=== PATIENT | male | born 1970 | race Caucasian/White ===

== ENCOUNTER 2017-10-06 07:24 | Observation (INO) | payer OTHER ==
[~2017-10-06] VITALS: Ht 182.9 cm; Wt 113.4 kg
--- NOTE | 2017-10-06 07:45 | ED GI/GU/ABDOMINAL COMPLAINT ---
History of Present Illness General Chief Complaint: Abdominal Pain/Flank Pain Stated Complaint: "I THINK I HAVE A KIDNEY STONE" Source: patient, family, old records Exam Limitations: no limitations Vital Signs & Intake/Output Vital Signs & Intake/Output Vital Signs Date Time Temp Pulse Resp B/P B/P Pulse O2 O2 Flow FiO2 Mean Ox Delivery Rate 10/06 1303 70 132/84 10/06 1007 70 15 132/84 100 Room Air Room Air 10/06 0726 98.3 74 18 178/111 98 Room Air Allergies Coded Allergies: No Known Allergies (10/06/17) Reconcile Medications Cholecalciferol (Vitamin D3) (Vitamin D) (Unknown Strength) TABLET (Unknown Dose) PO DAILY SUPPLEMENT (Reported) Dexlansoprazole (Dexilant) 60 MG KOKI.BP 1 CAP PO DAILY GI (Reported) Milk Thistle (Unknown Strength) CAPSULE (Unknown Dose) PO DAILY SUPPLEMENT ( Reported) Multiple Vitamin (Multivitamins) 1 EACH TABLET 1 TAB PO DAILY SUPPLEMENT ( Reported) [place]-3S/Dha/Epa/Fish Oil (Fish Oil 1,000 MG Softgel) (Unknown Strength) CAPSULE (Unknown Dose) PO DAILY SUPPLEMENT (Reported) Rosuvastatin Calcium (Crestor) 10 MG TABLET 1 TAB PO Saturday CHOLESTEROL (Reported) Triage Note: 47 YO MALE TO TRIAGE C/O R SIDED FLANK PAIN. STATES HX OF KIDNEY STONES. SEES DR WEIR. DENIES URINARY S/S. PT TO ER ROOM 4. IV EST. PT MEDICATED PER EMAR. Triage Nurses Notes Reviewed? yes Onset: Just prior to arrival Duration: hour(s):, constant, continues in ED Timing: recent history Quality/Severity: aching, sharpness, severe Location: right flank Radiation: RLQ Activities at Onset: sleep Prior Abdominal Problems: similar symptoms Past Sexual History: Unobtainable at this time No Modifying Factors: none Associated Symptoms: abdominal pain, nausea/vomiting HPI: 4 hours prior to admission patient awoke with sharp severe constant right sided flank pain into the right lower quadrant associated with nausea and diaphoresis similar to previous kidney stone 12 years ago. He denies fever chills chest pain cough shortness of breath headache dysuria rash bleeding. Past History Travel History Traveled to [place] past 21 day No Medical History Any Pertinent Medical History? 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 No Review of Systems Review of Systems Constitutional: Reports: no symptoms. EENTM: Reports: no symptoms. Respiratory: Reports: no symptoms. Cardiovascular: Reports: no symptoms. GI: Reports: see HPI, abdominal pain, nausea. Genitourinary: Reports: see HPI, pain. Musculoskeletal: Reports: no symptoms. Skin: Reports: no symptoms. Neurological/Psychological: Reports: no symptoms. Hematologic/Endocrine: Reports: no symptoms. Immunologic/Allergic: Reports: no symptoms. All Other Systems: Reviewed and Negative Physical Exam Physical Exam General Appearance: well developed/nourished, alert, awake, anxious, severe distress Head: atraumatic, normal appearance Eyes: Bilateral: normal appearance, PERRL, EOMI, normal inspection. Ears, Nose, Throat, Mouth: hearing grossly normal, moist mucous membrane Neck: normal inspection, supple, full range of motion, normal alignment Respiratory: normal breath sounds, chest non-tender, no respiratory distress, quiet respiration, lungs clear Cardiovascular: regular rate/rhythm, normal peripheral pulses, norml femoral pulses equa Peripheral Pulses: 4+ carotid (R), 4+ carotid (L) Gastrointestinal: normal bowel sounds, soft, non-tender, no organomegaly Male Genitals: normal genitalia Back: normal inspection, normal range of motion Extremities: normal range of motion, no ligament instability Neurologic/Psych: no motor/sensory deficits, awake, alert, oriented x 3, normal gait, normal mood/affect, 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 No Sepsis Present: No Sepsis Focused Exam Completed? No Progress Differential Diagnosis: biliary colic, pancreatitis, pyelonephritis, ureterolithiasis Plan of Care: Orders Procedure Date/time Status Regular Diet 10/06 L Active Pathway - chart 10/06 1352 Active House Staff 10/06 1352 Active Patient Data 10/06 1352 Active Code Status 10/06 1352 Active Pathway - chart 10/06 1350 Active Patient Data 10/06 1328 Active OXYGEN SETUP (GEN) 10/06 1250 Active Saline Lock 10/[address] in observation 10/06 1250 Active Vital Signs 10/06 125 Active Activity/Ambulation 10/06 1250 Active Code Status 10/06 1250 Complete URINALYSIS 10/06 0733 Complete LIPASE 10/06 0733 Complete COMPREHENSIVE METABOLIC PANEL 10/06 0733 Complete CBC WITHOUT DIFFERENTIAL 10/06 0733 Complete VTE Mechanical Prophylaxis 10/06 UNK Active Current Medications Sig/Janneth Start time Last Medication Dose Stop Time Status Admin Atorvastatin Calcium 20 MG 1700 10/06 170 UNVr (Lipitor) Heparin Sodium 5,000 UNIT Q8 10/06 1400 UNVr (Porcine) Morphine Sulfate 6 MG Q4P PRN 10/06 1400 UNVr (Morphine) Sodium Chloride 1,000 ML ONCE ONE 10/06 1400 UNVr (Normal Saline 0.9%) 10/06 1759 Sodium Chloride 1,000 ML BOLUS ONE 10/06 1300 AC 10/06 (Normal Saline 0.9%) 10/06 1359 1303 Laboratory Tests 10/06/17 1140: Urinalysis LIGHT H, Urine Color YEL, Urine Clarity HAZY H, Urine pH 6.0, Ur Specific [place] >= 1.030, Urine Protein TRACE H, Urine Ketones TRACE H, Urine Nitrite NEG, Urine Bilirubin NEG, Urine Urobilinogen 0.2, Ur Leukocyte Esterase NEG, Ur Microscopic SEDIMENT EXAMINED, Urine RBC 25-50 H, Urine WBC RARE, Ur Epithelial Cells RARE, Urine Bacteria RARE H, Hyaline Casts RARE H, Urine Mucus MOD H, Urine Hemoglobin LARGE H, Urine Glucose NEG 10/06/17 0740: Anion Gap 13, Estimated GFR 47 L, BUN/Creatinine Ratio 11.3, Glucose 115 H, Calcium 9.8, Total Bilirubin 1.0, AST 49, ALT 69, Alkaline Phosphatase 68, Total Protein 7.4, Albumin 4.5, Globulin 2.9, Albumin/Globulin Ratio 1.6, Lipase 79, CBC w Diff NO MAN DIFF REQ, RBC 5.76, MCV 89.6, MCH 30.0, MCHC 33.4, RDW 12.8, MPV 8.3, Gran % 71.9, Lymphocytes % 18.2 L, Monocytes % 7.1, Eosinophils % 2.4, Basophils % 0.4, Absolute Granulocytes 4.7, Absolute Lymphocytes 1.2, Absolute Monocytes 0.5, Absolute Eosinophils 0.2, Absolute Basophils 0 Diagnostic Imaging: Viewed by Me: Ultrasound. Discussed w/RAD: Ultrasound. Radiology Impression: Normal renal ultrasound. No stone seen.., Small bilateral renal stones. Mild right hydronephrosis from a 2 x 4 mm right proximal ureteral stone. Initial ED EKG: none Departure Departure Time of Disposition: 1200 Disposition: STILL A PATIENT Condition: Stable Clinical Impression Primary Impression: Renal colic on right side Referrals: Geovanna HAY,Victor Manuel Bob (PCP/Family) Departure Forms: Customer Survey General Discharge Information Observation Note Spoke With: John HAY,[facility] Physician Advisor Notified: JACLYN HAY,[facility] [facility] Patient In: Non-ED OBS Care Area Rationale for Observation: My rational for observation is as follows intractable pain requiring IV analgesia IV antiemetic IV fluid urology evaluation continuing care discharge planning..
[2017-10-06 08:01] LABS: ABSOLUTE BASOPHIL COUNT 0 /CUMM (0.0-0.2); ABSOLUTE EOSINOPHIL COUNT 0.2 /CUMM (0.0-0.7); ABSOLUTE GRANULOCYTE CT 4.7 /CUMM (1.4-6.5); ABSOLUTE LYMPH COUNT 1.2 /CUMM (1.2-3.4); ABSOLUTE MONOCYTE COUNT 0.5 /CUMM (0.10-0.60); BASOPHIL % 0.4 % (0.0-2.0); EOSINOPHIL % 2.4 % (0-5); GRANULOCYTE % 71.9 % (42.2-75.2); HEMATOCRIT 51.6 % (42-52); MEAN CORPUSCULAR HGB CONC 33.4 G/DL (33.0-37.0); MEAN CORPUSCULAR VOLUME 89.6 FL (80.0-94.0); MEAN PLATELET VOLUME 8.3 FL (7.4-10.4); PLATELET COUNT 230 /CUMM (130-400); RBC DISTRIBUTION WIDTH 12.8 % (11.5-14.5); RED BLOOD CELL CT 5.76 /CUMM (4.70-6.10); WHITE BLOOD CELL COUNT 6.5 /CUMM (4.8-10.8)
--- NOTE | 2017-10-06 09:00 | ULTRASOUND REPORT ---
EXAMINATION: US RETROPERITONEAL COMPLETE (RENAL) CLINICAL INFORMATION: Right flank pain. COMPARISON: Previous renal ultrasound and K[facility] July [address] July 2009 TECHNIQUE: Real-time imaging of the kidneys and bladder. FINDINGS: RIGHT KIDNEY: 11.8 x 6.2 x 6.3 cm (SAG x AP x TRV). The kidney is normal in size, contour, and echogenicity. Renal cortical thickness is normal. No calculi or focal parenchymal lesions. No hydronephrosis. LEFT KIDNEY: 11.7 x 7.2 x 4.8 cm (SAG x AP x TRV). The kidney is normal in size, contour, and echogenicity. Renal cortical thickness is normal. No calculi or focal parenchymal lesions. No hydronephrosis. BLADDER: Not optimally distended. A left ureteral jet is seen. A ureteral jet is not seen. Prevoid bladder volume is 112 mL. Postvoid bladder volume was not obtained. The prostate gland does not appear enlarged. The prostate gland measures 2.4 x 2.7 x 3.4 m. IMPRESSION: Normal renal ultrasound. No stone seen..
--- NOTE | 2017-10-06 10:22 | CT SCAN REPORT ---
EXAMINATION: CT ABDOMEN AND PELVIS WITHOUT CONTRAST CLINICAL INFORMATION: Right flank pain. COMPARISON: Previous renal ultrasound the same day. TECHNIQUE: Multidetector volumetric imaging was performed from the superior aspect of the liver through the pubic symphysis. Sagittal and coronal reformatted images were obtained on the technologist's workstation. DLP: 812 mGy-cm FINDINGS: LUNG BASES: The visualized lung bases are unremarkable. LIVER, GALLBLADDER, AND BILIARY TREE: The liver is normal in size, shape, and attenuation. No focal hepatic lesion or biliary ductal dilatation is present. The gallbladder is unremarkable with no evidence of radiopaque gallstones, gallbladder wall thickening, or obvious pericholecystic inflammatory changes. PANCREAS: Unremarkable. SPLEEN: Unremarkable. ADRENAL GLANDS: Unremarkable. KIDNEYS AND URETERS: There are four right renal stones. The largest stone measures 3 mm in the lower pole. There is mild right hydronephrosis from a 2 x 4 mm right proximal ureteral stone. There are 4 left renal stones, largest measuring 2 mm in the upper pole. No left hydronephrosis is seen. BLADDER: Unremarkable. GASTROINTESTINAL TRACT: The small and large bowel are unremarkable. The appendix is unremarkable. There may be a small hiatal hernia. ABDOMINAL WALL: There is a small umbilical hernia containing fat. There is fat in the left inguinal canal. LYMPH NODES: There are no enlarged lymph nodes. There is no ascites. VASCULAR: Unremarkable. PELVIC VISCERA: The prostate gland does not appear enlarged. OSSEOUS STRUCTURES: There is spondylolysis, spondylolisthesis and degenerative disc disease at L5-S1. IMPRESSION: Small bilateral renal stones. Mild right hydronephrosis from a 2 x 4 mm right proximal ureteral stone.
[2017-10-06] MEDS ORDERED: DEXILANT60 M1 PO (12:15)
[2017-10-06] MEDS ORDERED: VITAMIN D1000 UNIT PO (12:15)
[2017-10-06] MEDS ORDERED: CRESTOR10 M1 PO (12:15)
[2017-10-06] MEDS ORDERED: MILK THISTLE150 M1 PO (12:16)
[2017-10-06] MEDS ORDERED: MULTIVITAMINS1 EAC9 PO (12:16)
[2017-10-06] MEDS ORDERED: FISH OIL 1,0001 EAC5 PO (12:16)
--- NOTE | 2017-10-06 14:07 | History & Physical ---
AndreaSamirarhonda 10/06/17 1355: General Information and HPI MD Statement: I have seen and personally examined EDI WISE and documented this H&P. The patient is a 47 year old M who presented with a patient stated chief complaint of abdominal pain []. Source of Information: patient Exam Limitations: no limitations History of Present Illness: Patient is a 47-year-old male with significant history of renal stones, twice ESWL presented to the ED today with a chief complaint of right abdominal pain that started this morning. Patient states that at around 3 AM this morning he woke up with significant pain around the right lumbar region radiating to the right groin. Pain was 10 on 10 in severity, colicy in nature, around the right lumbar region. There was no associated fever, chills, nausea, vomiting, urinary or bowel symptoms. Patient had multiple episodes of renal stones in the past and therefore felt this was similar to his previous episodes. On arrival to the ED his temperature was 98.3, pulse 74, respiration 18, blood pressure 178/111, saturating 98% on room air. Labs were significant for a creatinine of 1.6(baseline 1.1) UA was hazy with hemoglobin and 25-50 RBCs Renal ultrasound was normal. CT abdomen and pelvis showed small bilateral renal stones, mild right hydronephrosis from a 2 x 4 mm right proximal ureteral stone. Patient received IV fluids, Toradol and morphine in the ED with improvement in his pain Allergies/Medications Allergies: Coded Allergies: No Known Allergies (10/06/17) Home Med list Cholecalciferol (Vitamin D3) (Vitamin D) (Unknown Strength) TABLET (Unknown Dose) PO DAILY SUPPLEMENT (Reported) Dexlansoprazole (Dexilant) 60 MG CAP.BP 1 CAP PO DAILY GI (Reported) Milk Thistle (Unknown Strength) CAPSULE (Unknown Dose) PO DAILY SUPPLEMENT ( Reported) Multiple Vitamin (Multivitamins) 1 EACH TABLET 1 TAB PO DAILY SUPPLEMENT ( Reported) [place]-3S/Dha/Epa/Fish Oil (Fish Oil 1,000 MG Softgel) (Unknown Strength) CAPSULE (Unknown Dose) PO DAILY SUPPLEMENT (Reported) Rosuvastatin Calcium (Crestor) 10 MG TABLET 1 TAB PO Saturday CHOLESTEROL (Reported) Past History Travel History Traveled to [place] past 21 day No Medical History Neurological: NONE EENT: NONE Cardiovascular: NONE Respiratory: NONE Gastrointestinal: NONE Hepatic: NONE Renal: KIDNEY STONES Musculoskeletal: NONE Psychiatric: NONE Endocrine: NONE Blood Disorders: NONE Cancer(s): 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 EENTM: Reports: no symptoms. Cardiovascular: Reports: no symptoms. Respiratory: Reports: no symptoms. GI: Reports: abdominal pain. Genitourinary: Reports: no symptoms. Musculoskeletal: Reports: no symptoms. Exam & Diagnostic Data Last 24 Hrs of Vital Signs/I&O Vital Signs Date Time Temp Pulse Resp B/P B/P Pulse O2 O2 Flow FiO2 Mean Ox Delivery Rate 10/06 1303 70 132/84 10/06 1007 70 15 132/84 100 Room Air Room Air 10/06 0726 98.3 74 18 178/111 98 Room Air Intake & Output 10/06 1600 10/06 0800 10/06 0000 Intake Total 2000 0 Output Total 60 Balance 1940 0 Intake, IV 2000 Intake, Oral 0 Output, Urine 60 Patient 113.398 kg Weight Weight Reported by Patient Measurement Method Physical Exam General Appearance Alert, Oriented X3, Cooperative, Mild Distress Skin No Rashes Skin Temp/Moisture Exam: Warm/Dry Sepsis Skin Exam (color): Normal for Ethnicity HEENT Atraumatic, PERRLA, EOMI Neck Supple, No JVD Lymphatic Cervical nl Cardiovascular Regular Rate, Normal S1, Normal S2, No Murmurs Lungs Clear to Auscultation, Normal Air Movement Abdomen TENDERNESS IN RIGHT LUMBAR REGION. No cva tenderness Neurological Normal Gait Extremities No Clubbing, No Cyanosis, No Edema Last 24 Hrs of Labs/Cristi: Laboratory Tests 10/06/17 1140: Urinalysis LIGHT H, Urine Color YEL, Urine Clarity HAZY H, Urine pH 6.0, Ur Specific [place] >= 1.030, Urine Protein TRACE H, Urine Ketones TRACE H, Urine Nitrite NEG, Urine Bilirubin NEG, Urine Urobilinogen 0.2, Ur Leukocyte Esterase NEG, Ur Microscopic SEDIMENT EXAMINED, Urine RBC 25-50 H, Urine WBC RARE, Ur Epithelial Cells RARE, Urine Bacteria RARE H, Hyaline Casts RARE H, Urine Mucus MOD H, Urine Hemoglobin LARGE H, Urine Glucose NEG 10/06/17 0740: Anion Gap 13, Estimated GFR 47 L, BUN/Creatinine Ratio 11.3, Glucose 115 H, Calcium 9.8, Total Bilirubin 1.0, AST 49, ALT 69, Alkaline Phosphatase 68, Total Protein 7.4, Albumin 4.5, Globulin 2.9, Albumin/Globulin Ratio 1.6, Lipase 79, CBC w Diff NO MAN DIFF REQ, RBC 5.76, MCV 89.6, MCH 30.0, MCHC 33.4, RDW 12.8, MPV 8.3, Gran % 71.9, Lymphocytes % 18.2 L, Monocytes % 7.1, Eosinophils % 2.4, Basophils % 0.4, Absolute Granulocytes 4.7, Absolute Lymphocytes 1.2, Absolute Monocytes 0.5, Absolute Eosinophils 0.2, Absolute Basophils 0 Assessment/Plan Assessment: Patient is a 47-year-old male with significant history of renal stones, twice ESWL presented to the ED today with a chief complaint of right abdominal pain that started this morning. On arrival to the ED his temperature was 98.3, pulse 74, respiration 18, blood pressure 178/111, saturating 98% on room air. Labs were significant for a creatinine of 1.6(baseline 1.1) UA was hazy with hemoglobin and 25-50 RBCs Renal ultrasound was normal. CT abdomen and pelvis showed small bilateral renal stones, mild right hydronephrosis from a 2 x 4 mm right proximal ureteral stone. Patient received IV fluids, Toradol and morphine in the ED with improvement in his pain Assessment * Renal colic secondary to proximal ureteral stone * Mild right hydronephrosis * Acute kidney injury Plan * Admit to [facility] * Vitals per protocol * IV hydration with normal saline at 150 cc an hour * Continue flomax daily * urine and blood cultures * Continue IV morphine 6 mg every 4 hours for pain control(no Toradol given significant kidney injury) check BEP in a.m. * We will watch off antibiotics since no signs of infection. Culture negative in the past * Urology consult with Dr. Sandy * We will keep patient nothing by mouth if plan to do ESWL tomorrow * DVT prophylaxis subcutaneous heparin * Full code * Severe pain pathway As Ranked By This Provider Problem List: 1. Renal colic on right side Core Measures/Misc (03/31) Acute Coronary Syndrome ACS Diagnosis: No Congestive Heart Failure Congestive Heart Failure Diagnosis No Cerebrovascular Accident CVA/TIA Diagnosis: No VTE (View Protocol) VTE Risk Factors Age>40 No Mechanical VTE Prophylaxis d/t N/A MechProphylax Ordered No VTE Pharm Prophylaxis d/t NA PharmProphylax ordered Sepsis (View protocol) Sepsis Present: No John HAY,Allison 10/06/17 1645: Attending Review Statement Attending Statement Attending MD Statement: examined this patient, discuss w/resident/PA/CAN DRYER, agreed w/resident/PA/CAN DRYER, reviewed EMR data (avail), reviewed images Attending Assessment/Plan: Patient seen and examined. Plan of care discussed with the medical team and the patient. Available lab work and radiology test reports were reviewed. Patient is a 47-year-old male with significant history of renal stones, twice ESWL presented to the ED today with a chief complaint of right flank and abdominal pain that started this morning. Patient was given Toradol in ED. Patient still not comfortable with his pain. He is currently afebrile. Although his initial blood pressure was elevated later on blood pressure normalized. CT scan shows a 2 x 4 mm right proximal ureteric stone with the mild right hydronephrosis. Plan is to admit patient to please observation on medical floor for pain control and IV fluids. We'll obtain consultation with Dr. Sandy. Patient does not like getting morphine therefore plan is to give Toradol for a short duration of 24-48 hours. Please recheck creatinine tomorrow given his elevated. Pain is not controlled Toradol patient can be given Dilaudid. Renal suspicion for UTI therefore no need for antibiotics.
[2017-10-06 16:14] VITALS: BP 130/95
--- NOTE | 2017-10-06 16:52 | Cons- Urology ---
General Information and HPI Consulting Request Date of Consult: 10/06/17 Requested By: John HAY,Allison Reason for Consult: SEVERE RIGHT RENAL COLIC;HYDRONEPHROSIS;KIDNEY-URETER STONES Source of Information: patient, old records Exam Limitations: no limitations History of Present Illness: 47 YR OLD WITH KNOWN HX STONES: NO SYMPTOMS FOR 4 YEARS. NOW PRESENTS WITH SUDDEN ONSET RIGHT COLI: CT REVIEWED WITH PT. Allergies/Medications Allergies: Coded Allergies: No Known Allergies (10/06/17) Home Med List: Cholecalciferol (Vitamin D3) (Vitamin D) (Unknown Strength) TABLET (Unknown Dose) PO DAILY SUPPLEMENT (Reported) Dexlansoprazole (Dexilant) 60 MG CAP.BP 1 CAP PO DAILY GI (Reported) Milk Thistle (Unknown Strength) CAPSULE (Unknown Dose) PO DAILY SUPPLEMENT ( Reported) Multiple Vitamin (Multivitamins) 1 EACH TABLET 1 TAB PO DAILY SUPPLEMENT ( Reported) [place]-3S/Dha/Epa/Fish Oil (Fish Oil 1,000 MG Softgel) (Unknown Strength) CAPSULE (Unknown Dose) PO DAILY SUPPLEMENT (Reported) Rosuvastatin Calcium (Crestor) 10 MG TABLET 1 TAB PO Saturday CHOLESTEROL (Reported) Current Medications: Current Medications Sig/Janneth Start time Last Medication Dose Route Stop Time Status Admin Acetaminophen 1,000 MG ONCE ONE 10/06 0930 DC 10/06 IV 10/06 0931 0922 Acetaminophen 0 .STK-MED ONE 10/06 0922 DC IV Atorvastatin Calcium 20 MG 1700 10/06 1700 AC PO Famotidine 20 MG ONCE ONE 10/06 1200 DC 10/06 IV 10/06 1201 1159 Famotidine 0 .STK-MED ONE 10/06 1153 DC IV Heparin Sodium 5,000 UNIT Q8 10/06 1400 AC (Porcine) SC Ketorolac 30 MG ONCE ONE 10/06 1200 DC 10/06 Tromethamine IV 10/06 1201 1159 Ketorolac 0 .STK-MED ONE 10/06 1153 DC Tromethamine .ROUTE Ketorolac 30 MG ONCE ONE 10/06 0745 DC 10/06 Tromethamine IV 10/06 0746 0740 Ketorolac 0 .STK-MED ONE 10/06 0738 DC Tromethamine .ROUTE Morphine Sulfate 6 MG Q4P PRN 10/06 1400 AC 10/06 IV 1647 Morphine Sulfate 0 .STK-MED ONE 10/06 1018 DC .ROUTE Morphine Sulfate 4 MG ONCE ONE 10/06 1015 DC 10/06 IV 10/06 1016 1018 Morphine Sulfate 4 MG ONCE ONE 10/06 0745 DC 10/06 IV 10/06 0746 0740 Morphine Sulfate 0 .STK-MED ONE 10/06 0740 DC .ROUTE Ondansetron HCl 4 MG ONCE ONE 10/06 0745 DC 10/06 IV 10/06 0746 0740 Ondansetron HCl 0 .STK-MED ONE 10/06 0739 DC .ROUTE Sodium Chloride 1,000 ML Q6H 10/06 1530 AC 10/06 IV 1520 Sodium Chloride 1,000 ML ONCE ONE 10/06 1400 AC 10/06 IV 10/06 1759 1437 Sodium Chloride 1,000 ML BOLUS ONE 10/06 1300 DC 10/06 IV 10/06 1359 1303 Sodium Chloride 1,000 ML BOLUS ONE 10/06 1200 DC 10/06 IV 10/06 1259 1159 Sodium Chloride 1,000 ML BOLUS ONE 10/06 1045 DC 10/06 IV 10/06 1144 1039 Sodium Chloride 1,000 ML BOLUS ONE 10/06 0745 DC 10/06 IV 10/06 0844 0740 Tamsulosin HCl 0.4 MG DAILY 10/07 1000 AC PO Tamsulosin HCl 0.4 MG ONCE ONE 10/06 1300 DC 10/06 PO 10/06 1301 1303 Past History Medical History Blood Transfusion Hx: No Neurological: PINCH NERVE L5-S1 EENT: NONE Cardiovascular: NONE Respiratory: NONE Gastrointestinal: NONE Hepatic: NONE Renal: KIDNEY STONES Musculoskeletal: NONE Psychiatric: NONE Endocrine: NONE Blood Disorders: NONE Cancer(s): MELANOMA 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 Ambulation: independent IADLs Independent: shopping, housework, finances, food prep, telephone, transportation , medication admin. Employment History Employment: Employed Profession/Employer: [employer] Retired? no Review of Systems Review of Systems Constitutional: Reports: chills. EENTM: Denies: no symptoms. Cardiovascular: Denies: no symptoms. Respiratory: Denies: no symptoms. GI: Denies: no symptoms. Genitourinary: Denies: no symptoms. Musculoskeletal: Denies: no symptoms. Skin: Denies: no symptoms. Exam & Diagnostic Data Vital Signs and I&O Vital Signs Date Time Temp Pulse Resp B/P B/P Pulse O2 O2 Flow FiO2 Mean Ox Delivery Rate 10/06 1550 97.0 70 18 136/64 98 Room Air 10/06 1421 96.4 63 16 157/91 99 10/06 1303 70 132/84 10/06 1007 70 15 132/84 100 Room Air Room Air 10/06 0726 98.3 74 18 178/111 98 Room Air Intake & Output 10/06 1600 10/06 0800 10/06 0000 10/05 1600 10/05 0800 10/05 0000 Intake Total 2000 0 Output Total 60 Balance 1940 0 Intake, IV 2000 Intake, Oral 0 Output, Urine 60 Patient 250 lb Weight Weight Reported by Patient Measurement Method Physical Exam General Appearance: well developed/nourished, mild distress Head: atraumatic Eyes: Bilateral: normal appearance. Respiratory: normal breath sounds Cardiovascular: regular rate/rhythm Gastrointestinal: normal bowel sounds, soft, non-tender Back: CVA tenderness (R) Extremities: normal inspection Skin: intact, normal color, warm/dry Reproductive: Normal male genitalia Last 24 Hours of Labs: Laboratory Tests 10/06 10/06 1140 0740 Chemistry Sodium (137 - 145 mmol/L) 146 H Potassium (3.5 - 5.1 mmol/L) 4.5 Chloride (98 - 107 mmol/L) 102 Carbon Dioxide (22 - 30 mmol/L) 31 H Anion Gap (5 - 16) 13 BUN (9 - 20 mg/dL) 18 Creatinine (0.7 - 1.2 mg/dL) 1.6 H Estimated GFR (>60 ml/min) 47 L BUN/Creatinine Ratio (7 - 25 %) 11.3 Glucose (65 - 99 mg/dL) 115 H Calcium (8.4 - 10.2 mg/dL) 9.8 Total Bilirubin (0.2 - 1.3 mg/dL) 1.0 AST (17 - 59 U/L) 49 ALT (21 - 72 U/L) 69 Alkaline Phosphatase (< 127 U/L) 68 Total Protein (6.3 - 8.2 g/dL) 7.4 Albumin (3.5 - 5.0 g/dL) 4.5 Globulin (1.9 - 4.2 gm/dL) 2.9 Albumin/Globulin Ratio (1.1 - 2.2 %) 1.6 Lipase (23 - 300 U/L) 79 Hematology CBC w Diff NO MAN DIFF REQ WBC (4.8 - 10.8 /CUMM) 6.5 RBC (4.70 - 6.10 /CUMM) 5.76 Hgb (14.0 - 18.0 G/DL) 17.3 Hct (42 - 52 %) 51.6 MCV (80.0 - 94.0 FL) 89.6 MCH (27.0 - 31.0 PG) 30.0 MCHC (33.0 - 37.0 G/DL) 33.4 RDW (11.5 - 14.5 %) 12.8 Plt Count (130 - 400 /CUMM) 230 MPV (7.4 - 10.4 FL) 8.3 Gran % (42.2 - 75.2 %) 71.9 Lymphocytes % (20.5 - 51.1 %) 18.2 L Monocytes % (1.7 - 9.3 %) 7.1 Eosinophils % (0 - 5 %) 2.4 Basophils % (0.0 - 2.0 %) 0.4 Absolute Granulocytes (1.4 - 6.5 /CUMM) 4.7 Absolute Lymphocytes (1.2 - 3.4 /CUMM) 1.2 Absolute Monocytes (0.10 - 0.60 /CUMM) 0.5 Absolute Eosinophils (0.0 - 0.7 /CUMM) 0.2 Absolute Basophils (0.0 - 0.2 /CUMM) 0 Urines Urinalysis LIGHT H Urine Color (YEL,AMB,STR) YEL Urine Clarity (CLEAR) HAZY H Urine pH (5.0 - 8.0) 6.0 Ur Specific [place] (1.001 - 1.035) >= 1.030 Urine Protein (NEG,<30 MG/DL) TRACE H Urine Ketones (NEG) TRACE H Urine Nitrite (NEG) NEG Urine Bilirubin (NEG) NEG Urine Urobilinogen (0.1 - 1.0 EU/dl) 0.2 Ur Leukocyte Esterase (NEG) NEG Ur Microscopic SEDIMENT EXAMINED Urine RBC (0 - 5 /HPF) 25-50 H Urine WBC (0 - 2 /HPF) RARE Ur Epithelial Cells (NONE,FEW) RARE Urine Bacteria (NEG/NONE) RARE H Hyaline Casts (0/LPF) RARE H Urine Mucus (FEW,NONE) MOD H Urine Hemoglobin (NEG) LARGE H Urine Glucose (N MG/DL) NEG Imaging Results: PATIENT: EDI WISE PRESENT AGE: 47 PATIENT ACCOUNT NO: [id number] : 70 LOCATION: [facility] ORDERING PHYSICIAN: Travis Bhagat MD SERVICE DATE: 10/06/17 EXAM TYPE: CAT - CT ABD & PELVIS W/O IV CONTRAS EXAMINATION: CT ABDOMEN AND PELVIS WITHOUT CONTRAST CLINICAL INFORMATION: Right flank pain. COMPARISON: Previous renal ultrasound the same day. TECHNIQUE: Multidetector volumetric imaging was performed from the superior aspect of the liver through the pubic symphysis. Sagittal and coronal reformatted images were obtained on the technologist's workstation. DLP: 812 mGy-cm FINDINGS: LUNG BASES: The visualized lung bases are unremarkable. LIVER, GALLBLADDER, AND BILIARY TREE: The liver is normal in size, shape, and attenuation. No focal hepatic lesion or biliary ductal dilatation is present. The gallbladder is unremarkable with no evidence of radiopaque gallstones, gallbladder wall thickening, or obvious pericholecystic inflammatory changes. PANCREAS: Unremarkable. SPLEEN: Unremarkable. ADRENAL GLANDS: Unremarkable. KIDNEYS AND URETERS: There are four right renal stones. The largest stone measures 3 mm in the lower pole. There is mild right hydronephrosis from a 2 x 4 mm right proximal ureteral stone. There are 4 left renal stones, largest measuring 2 mm in the upper pole. No left hydronephrosis is seen. BLADDER: Unremarkable. GASTROINTESTINAL TRACT: The small and large bowel are unremarkable. The appendix is unremarkable. There may be a small hiatal hernia. ABDOMINAL WALL: There is a small umbilical hernia containing fat. There is fat in the left inguinal canal. LYMPH NODES: There are no enlarged lymph nodes. There is no ascites. VASCULAR: Unremarkable. PELVIC VISCERA: The prostate gland does not appear enlarged. OSSEOUS STRUCTURES: There is spondylolysis, spondylolisthesis and degenerative disc disease at L5-S1. IMPRESSION: Small bilateral renal stones. Mild right hydronephrosis from a 2 x 4 mm right proximal ureteral stone. Assessment/Plan Assessment/Plan RIGHT URETER STONE 4MM: WILL LIKELY PASS ON OWN: ADMITTED FOR PAIN MANAGEMENT-IF NO IMPROVEMENT OVERNIGHT WILL TAKE TO OR TOMORROW. OTHERWISE, IF IMPROVED IN AM CAN DC HOME TO RETURN ON SATURDAY FOR RIGHT ESWL. Copies To: Du HAY,Shine Consult Acknowledgment - Thank you for your consult request. Attending MD Review Statement Attending Statement Attending MD Statement: examined this patient, discuss w/resident/PA/CHANNEL MAN Attending Assessment/Plan: RIGHT URETER STONE 4MM: WILL LIKELY PASS ON OWN: ADMITTED FOR PAIN MANAGEMENT-IF NO IMPROVEMENT OVERNIGHT WILL TAKE TO OR TOMORROW. OTHERWISE, IF IMPROVED IN AM CAN DC HOME TO RETURN ON SATURDAY FOR RIGHT ESWL.
[2017-10-06 22:20] VITALS: BP 120/78
[2017-10-07 05:45] VITALS: BP 138/86
--- NOTE | 2017-10-07 11:16 | PN-Observation ---
Kwabena HAY,Aretha 10/07/17 1115: Observation Note Observation Note _ I have personally examined EDI WISE. him disposition is uncertain at this time. Before a determination can be made, he requires continued observation for the following reasons [renal stone with pain]. Assessment/Plan Medical Assessment: Patient is a 47-year-old male with significant history of renal stones, twice ESWL presented to the ED today with a chief complaint of right abdominal pain that started this morning. Assessment and plan Right proximal ureteral stone Acute kidney injury Right hydronephrosis * Patient treated with IV fluids and pain medication. He is on morphine 6 mg every 4. * Discussed with urologist wanted to do ureteroscope E/cystoscopy with laser lithotripsy and possible stent. * Patient can be discharged tomorrow to home with follow-up with Dr. Sandy within 1-2 weeks. * Acute kidney injury secondary due to right hydronephrosis and decreased by mouth intake. Patient is being treated with IV fluids at 150 mL per hour. Monitor BP tomorrow. * Patient is nothing by mouth for the procedure. * Code-full code * DVT prophylaxis-heparin Problem List: 1. Renal colic on right side 2. Hydronephrosis DVT/Prophylaxis: mechanical, pharmacological Subjective Follow-up For: Right renal stone Complaints: complains of pain and right loin 10 x 10 Review of Systems Constitutional: Reports: see HPI. Cardiovascular: Reports: no symptoms. Respiratory: Reports: no symptoms. Gastrointestinal: Reports: no symptoms. Genitourinary: Reports: no symptoms. Musculoskeletal: Reports: no symptoms. Objective Last 24 Hrs of Vital Signs/I&O Vital Signs Date Time Temp Pulse Resp B/P B/P Pulse O2 O2 Flow FiO2 Mean Ox Delivery Rate 10/07 1002 138/86 10/07 0545 98.7 79 22 138/86 97 Room Air 10/06 2220 97.5 78 18 120/78 96 Room Air 10/06 1614 97.8 66 16 130/95 97 Room Air 10/06 1550 97.0 70 18 136/64 98 Room Air 10/06 1421 96.4 63 16 157/91 99 Intake & Output 10/07 1600 10/07 0800 10/07 0000 Intake Total 1200 Output Total 775 500 Balance 425 -500 Intake, IV 1200 Output, Urine 775 500 Patient 250 lb Weight Physical Exam General Appearance: Alert, Oriented X3, Cooperative, No Acute Distress Cardiovascular: Regular Rate, Normal S1, Normal S2, No Murmurs Lungs: Clear to Auscultation, Normal Air Movement Abdomen: Soft, No Tenderness, No Hepatospenomegaly Neurological: Normal Speech, Strength at 5/5 X4 Ext, Normal Tone, Sensation Intact Extremities: No Edema Current Medications: Current Medications Sig/Janneth Start time Last Medication Dose Route Stop Time Status Admin Acetaminophen 1,000 MG Q6P PRN 10/07 0945 AC N/A 1 UNIT IV Acetaminophen 1,000 MG ONCE ONE 10/06 2115 DC 10/06 N/A 1 UNIT IV 10/069 2156 Atorvastatin Calcium 20 MG 1700 10/06 1700 AC PO Heparin Sodium 5,000 UNIT Q8 10/06 1400 AC (Porcine) SC Hydromorphone HCl 2 MG Q4P PRN 10/07 0945 AC PO Hydromorphone HCl 2 MG ONCE ONE 10/06 2245 DC PO 10/06 2246 Ketorolac 30 MG Q6-PRN PRN 10/07 0815 DC Tromethamine IV 10/12 0814 Ketorolac 30 MG ONCE ONE 10/07 0745 DC 10/07 Tromethamine IV 10/07 0746 0737 Morphine Sulfate 8 MG Q2 HRS NEEDED PRN 10/06 1830 DC 10/06 IV 1835 Morphine Sulfate 6 MG Q4P PRN 10/06 1400 DC 10/06 IV 1647 Ondansetron HCl 4 MG Q6P PRN 10/06 1830 AC 10/07 IV 0507 Sodium Chloride 1,000 ML Q6H 10/06 1530 AC 10/07 IV 1002 Sodium Chloride 1,000 ML ONCE ONE 10/06 1400 DC 10/06 IV 10/06 1759 1437 Sodium Chloride 1,000 ML BOLUS ONE 10/06 1300 DC 10/06 IV 10/06 1359 1303 Tamsulosin HCl 0.4 MG DAILY 10/07 1000 AC 10/07 PO 1002 Last 24 Hrs of Labs/Mics: Laboratory Tests 10/07/17 0709: Anion Gap 12, Estimated GFR 38 L, BUN/Creatinine Ratio 8.9 Microbiology 10/06 1408 BLOOD: Blood Culture - CAN Cancelled: NO BLOOD COLLECTED FOR MICRO DEPT/. IF NEEDED MUST BE 10/06 1408 BLOOD: Blood Culture - CAN Cancelled: NO BLOOD COLLECTED FOR MICRO DEPT/. IF NEEDED MUST BE Aminata Huynh 10/07/17 1251: Attending Addendum Attending Brief Note Patient with multiple renal stones and now found to have ASHLY. Patient on hydration, monitor creatinine. Urology conuslted, follow recs. Plan for OR as per urology.
--- NOTE | 2017-10-07 15:45 | Event Note ---
See Addendum Event Note Event Note: Patient's creatinine is worsened to 1.9 mg/dl today despite IV fluid hydration. Patient will likely need evaluation for his acute kidney injury in the setting of known bilateral renal stones with right ureteral stone and right hydronephosis. Case discussed with attending and pillowcase folder. Patient will need to be admitted for further evaluation of his kidney function and to monitor his serum creatinine. He may need ureteral stent insertion for his right ureteral/kidney stone with hydronephrosis and his renal function will have to be closely watched for improvement to prevent further deterioration of his renal function.
[2017-10-07 18:30] VITALS: BP 140/84
[2017-10-08 01:49] VITALS: BP 111/59
--- NOTE | 2017-10-08 07:15 | PN- Housestaff ---
Subjective Follow-up For: Right renal colic Complaints: no complaints Subjective: Patient seen and examined at bedside. Patient complains of mild vague right loin pain on and off. He denies nausea, vomiting, abdominal pain. He is eager to go home today. Review of Systems Constitutional: Reports: see HPI. Objective Last 24 Hrs of Vital Signs/I&O Vital Signs Date Time Temp Pulse Resp B/P B/P Pulse O2 O2 Flow FiO2 Mean Ox Delivery Rate 10/08 0724 97.9 79 18 128/86 98 10/08 0149 98.3 85 18 111/59 95 10/07 1830 96.3 72 18 140/84 96 Room Air 10/07 1002 138/86 Intake & Output 10/08 1600 10/08 0800 10/08 0000 Intake Total 0 400 Output Total 500 300 Balance -500 100 Intake, IV 0 Intake, Oral 400 Number 0 Bowel Movements Output, Urine 500 300 Physical Exam General Appearance: Alert, Oriented X3, Cooperative, No Acute Distress Cardiovascular: Normal S1, Normal S2, No Murmurs Lungs: Clear to Auscultation Abdomen: Soft, No Tenderness, No Hepatospenomegaly Neurological: Strength at 5/5 X4 Ext, Normal Tone, Sensation Intact Extremities: No Cyanosis, No Edema, Normal Pulses Current Medications: Current Medications Sig/Janneth Start time Last Medication Dose Route Stop Time Status Admin Acetaminophen 1,000 MG Q6P PRN 10/07 0945 AC N/A 1 UNIT IV Atorvastatin Calcium 20 MG 1700 10/06 1700 AC PO Fentanyl Citrate 250 MCG .STK-MED ONE 10/07 1357 DC IM 10/07 1358 Heparin Sodium 5,000 UNIT Q8 10/06 1400 AC (Porcine) SC Hydromorphone HCl 2 MG Q4P PRN 10/07 0945 AC PO Ketorolac 30 MG Q6-PRN PRN 10/07 0815 DC Tromethamine IV 10/12 0814 Meperidine HCl 50 MG .STK-MED ONE 10/07 1654 DC IM 10/07 1655 Meperidine HCl 50 MG .STK-MED ONE 10/07 1635 DC IM 10/07 1636 Midazolam HCl 2 MG .STK-MED ONE 10/07 1357 DC IM 10/07 1358 Morphine Sulfate 4 MG .STK-MED ONE 10/07 1654 DC IM 10/07 1655 Morphine Sulfate 4 MG .STK-MED ONE 10/07 1636 DC IM 10/07 1637 Morphine Sulfate 4 MG .STK-MED ONE 10/07 1357 DC IM 10/07 1358 Ondansetron HCl 4 MG Q6P PRN 10/06 1830 AC 10/07 IV 0507 Scopolamine HBr 0 .STK-MED ONE 10/07 1403 DC TOP Scopolamine HBr 1 PAT .STK-MED ONE 10/07 1356 DC TOP 10/07 1357 Sodium Chloride 1,000 ML Q6H 10/06 1530 DC 10/07 IV 1002 Tamsulosin HCl 0.4 MG DAILY 10/07 1000 AC 10/07 PO 1002 Last 24 Hrs of Lab/Cristi Results Last 24 Hrs of Labs/Mics: Laboratory Tests 10/08/17 0655: Anion Gap 13, Estimated GFR 43 L, BUN/Creatinine Ratio 10.6 Microbiology 10/07 1454 URINE ROUT: Urine Culture - RES Assessment/Plan Assessment: Patient is a 47-year-old male with significant history of renal stones, twice ESWL presented to the ED today with a chief complaint of right abdominal pain that started this morning. Assessment and plan 1. Right proximal ureteral stone 2. Acute kidney injury 3. Right hydronephrosis * Patient treated with IV fluids and pain medication. He is on morphine 6 mg every 4. * Patient had right renal stent placement yesterday. I discussed with Dr. Sandy today morning who suggested to discharge the patient today and follow-up with him as outpatient in 4 weeks. Apparently patient had ureteral stricture secondary due to chronic renal stones. * Acute kidney injury secondary due to right hydronephrosis and decreased by mouth intake. Patient is being treated with IV fluids at 150 mL per hour. Today creatinine has decreased from 1.9-1.7. Encourage by mouth intake. * is not diet-regular diet. * Code-full code * DVT prophylaxis-heparin Problem List: 1. Renal colic on right side 2. Hydronephrosis Pain Ratin Pain Location: NONE Pain Goal: Remain pain free Pain Plan: Hydromorphone Tomorrow's Labs & Rationales: None
[2017-10-08 07:24] VITALS: BP 128/86
[2017-10-08] MEDS ORDERED: FLOMAX0.4 M1 PO (07:45)
[2017-10-08] MEDS ORDERED: HYDROMORPHONE HC2 M1 PO (07:45)
--- NOTE | 2017-10-08 08:10 | RADIOLOGY REPORT ---
EXAMINATION: INTRAOPERATIVE FLUOROSCOPY DURING RIGHT CYSTOURETEROSCOPY CLINICAL INDICATION: Right ureteral stone. COMPARISON: None. TECHNIQUE: The procedure was performed by Dr. Sandy in the operating room. FLUOROSCOPY TIME: 31 seconds. Number of images: 1 FINDINGS: Fluoroscopic imaging demonstrates presence of a catheter into the right ureter/collecting system and opacification of the right renal collecting system. IMPRESSION: Intraoperative fluoroscopy was utilized by Dr. Sandy during right ureteroscopy. Please refer to the operative report for a detailed description of the procedure and the real-time findings made and acted upon by the surgeon.
--- NOTE | 2017-10-08 08:36 | Patient Discharge Instructions ---
Discharge Instructions General Discharge Information You were seen/treated for: Right renal colic You had these procedures: Right renal stent placement Watch for these problems: In case of colicky abdominal pain, nausea, vomiting, abdominal pain, decreased urination please call to the nearest emergency room Special Instructions: Please follow-up with Dr. Sandy as outpatient in 4 weeks for removal of stent. Please follow-up with your primary care provider to and check his BEP within 1-2 weeks of discharge. Diet Continue normal diet: Yes Activity Full Activity/No Limits: No Activity Self Limited: Yes Acute Coronary Syndrome Inclusion Criteria At DC or during hospital stay patient has or had the following: ACS DIAGNOSIS No Discharge Core Measures Meds if any: Prescribed or Continued at Discharge Meds if any: NOT Prescribed or Continued at Discharge Congestive Heart Failure Inclusion Criteria At DC or during hospital stay patient has or had the following: CHF DIAGNOSIS No Discharge Core Measures Meds if any: Prescribed or Continued at Discharge Meds if any: NOT Prescribed or Continued at Discharge Cerebrovascular accident Inclusion Criteria At DC or during hospital stay patient has or had the following: CVA/TIA Diagnosis No Discharge Core Measures Meds if any: Prescribed or Continued at Discharge Meds if any: NOT Prescribed or Continued at Discharge Venous thromboembolism Inclusion Criteria VTE Diagnosis No VTE Type NONE VTE Confirmed by (Test) NONE Discharge Core Measures - Per Current guidelines, there needs to be overlap - treatment for the first 5 days of Warfarin therapy. - If discharged on Warfarin prior to 5 days of - overlap therapy, the patient will need to be - assessed for post discharge needs including - *Post discharge parental anticoagulation - *Warfarin and/or parental anticoagulation education - *Follow up date to check INR post discharge At least 5 days overlap therapy as Inpatient No Meds if any: Prescribed or Continued at Discharge Note: Overlap Therapy is Warfarin and Anticoagulant Meds if any: NOT Prescribed or Continued at Discharge
--- NOTE | 2017-10-08 08:43 | Discharge Summary ---
Hospital Course Allergies: Coded Allergies: No Known Allergies (10/06/17) Discharge Instructions Medications at Discharge Discharge Medications: Continue taking these medications: Rosuvastatin Calcium (Crestor) 10 MG TABLET 1 Tablet ORAL SATURDAY, SATURDAY AND SATURDAY Comments: NOT GIVEN Dexlansoprazole (Dexilant) 60 MG CAP.DR.BP 1 Capsule ORAL DAILY Comments: NOT GIVEN Cholecalciferol (Vitamin D3) (Vitamin D) (Unknown Strength) TABLET Unknown Dose ORAL DAILY Comments: NOT GIVEN IN HOSPITAL Milk Thistle (Milk Thistle) (Unknown Strength) CAPSULE Unknown Dose ORAL DAILY Comments: NOT GIVEN [place]-3S/Dha/Epa/Fish Oil (Fish Oil 1,000 MG Softgel) (Unknown Strength) CAPSULE Unknown Dose ORAL DAILY Comments: NOT GIVEN Multiple Vitamin (Multivitamins) 1 EACH TABLET 1 Tablet ORAL DAILY Comments: NOT GIVEN Start taking the following new medications: Tamsulosin HCl (Flomax) 0.4 MG CAP.ER.24H 0.4 Milligram ORAL DAILY as needed for ABDOMINAL PAIN Qty = 30 No Refills Comments: Last Taken:10/07/17 Time:10:00 AM Hydromorphone HCl (Hydromorphone HCl) 2 MG TABLET 2 Milligram ORAL EVERY 4 HOURS NEEDED as needed for PAIN SCALE 7-10 ( SEVERE) Qty = 30 No Refills
[2017-10-08 08:50] VITALS: BP 128/82
--- NOTE | 2017-10-08 10:36 | PN-Observation ---
Observation Note Observation Note _ I have personally examined EDI WISE. him disposition is uncertain at this time. Before a determination can be made, he requires continued observation for the following reasons [RT RENAL COLIC PAIN]. Assessment/Plan Medical Assessment: Patient is a 47-year-old male with significant history of renal stones, twice ESWL presented to the ED today with a chief complaint of right abdominal pain that started this morning. Assessment and plan 1. Right proximal ureteral stone 2. Acute kidney injury 3. Right hydronephrosis * Patient treated with IV fluids and pain medication. He is on morphine 6 mg every 4. * Patient had right renal stent placement yesterday. I discussed with Dr. Sandy today morning who suggested to discharge the patient today and follow-up with him as outpatient in 4 weeks. Apparently patient had ureteral stricture secondary due to chronic renal stones. * Acute kidney injury secondary due to right hydronephrosis and decreased by mouth intake. Patient is being treated with IV fluids at 150 mL per hour. Today creatinine has decreased from 1.9-1.7. Encourage by mouth intake. * is not diet-regular diet. * Code-full code * DVT prophylaxis-heparin Problem List: 1. Hydronephrosis 2. Renal colic on right side Subjective Follow-up For: RT RENAL COLIC PAIN SEC TO RENAL STONES Complaints: ABD PAIN ON AND OFF Subjective: Patient seen and examined at bedside. Patient complains of mild vague right loin pain on and off. He denies nausea, vomiting, abdominal pain. He is eager to go home today. Review of Systems Constitutional: Reports: see HPI. Objective Last 24 Hrs of Vital Signs/I&O Vital Signs Date Time Temp Pulse Resp B/P B/P Pulse O2 O2 Flow FiO2 Mean Ox Delivery Rate 10/08 0850 70 128/82 10/08 0724 97.9 79 18 128/86 98 10/08 0149 98.3 85 18 111/59 95 10/07 1830 96.3 72 18 140/84 96 Room Air Intake & Output 10/08 1600 10/08 0800 10/08 0000 Intake Total 0 400 Output Total 500 300 Balance -500 100 Intake, IV 0 Intake, Oral 400 Number 0 Bowel Movements Output, Urine 500 300 Physical Exam General Appearance: Alert, Oriented X3, Cooperative, No Acute Distress Cardiovascular: Regular Rate, Normal S1, Normal S2, No Murmurs Lungs: Clear to Auscultation Abdomen: Normal Bowel Sounds, Soft, No Tenderness, No Hepatospenomegaly Neurological: Normal Speech, Strength at 5/5 X4 Ext, Normal Tone, Sensation Intact Extremities: No Cyanosis, No Edema, Normal Pulses Current Medications: Current Medications Sig/Janneth Start time Last Medication Dose Route Stop Time Status Admin Acetaminophen 1,000 MG Q6P PRN 10/07 0945 DCD N/A 1 UNIT IV Atorvastatin Calcium 20 MG 1700 10/06 1700 DCD PO Fentanyl Citrate 250 MCG .STK-MED ONE 10/07 1357 DC IM 10/07 1358 Heparin Sodium 5,000 UNIT Q8 10/06 1400 DCD (Porcine) SC Hydromorphone HCl 2 MG Q4P PRN 10/07 0945 DCD PO Meperidine HCl 50 MG .STK-MED ONE 10/07 1654 DC IM 10/07 1655 Meperidine HCl 50 MG .STK-MED ONE 10/07 1635 DC IM 10/07 1636 Midazolam HCl 2 MG .STK-MED ONE 10/07 1357 DC IM 10/07 1358 Morphine Sulfate 4 MG .STK-MED ONE 10/07 1654 DC IM 10/07 1655 Morphine Sulfate 4 MG .STK-MED ONE 10/07 1636 DC IM 10/07 1637 Morphine Sulfate 4 MG .STK-MED ONE 10/07 1357 DC IM 10/07 1358 Ondansetron HCl 4 MG Q6P PRN 10/06 1830 DCD 10/07 IV 0507 Scopolamine HBr 0 .STK-MED ONE 10/07 1403 DC TOP Scopolamine HBr 1 PAT .STK-MED ONE 10/07 1356 DC TOP 10/07 1357 Sodium Chloride 1,000 ML Q6H 10/06 1530 DC 10/07 IV 1002 Tamsulosin HCl 0.4 MG DAILY 10/07 1000 DCD 10/07 PO 1002 Last 24 Hrs of Labs/Mics: Laboratory Tests 10/08/17 0655: Anion Gap 13, Estimated GFR 43 L, BUN/Creatinine Ratio 10.6 Microbiology 10/07 1454 URINE ROUT: Urine Culture - RES
== END 2017-10-08 09:04 ==
LOC: ERH 07:24 → 2NB 12:50 → ERHI 12:50 → ENRESERV 14:48 → ENTRNSPT 15:52 → EDTRNSPTSTS 15:56 → 2NB 16:15 → CMPTRNSPT 16:19 → 2NB 10-07 08:20 → ENTRNSPT 10-07 17:34 → EDTRNSPTSTS 10-07 18:12 → CMPTRNSPT 10-07 18:38 → ENPENDDIS 10-08 07:53 → 2NB 10-08 09:04
PROVIDERS: Emergency Medicine
DX: N13.2 Hydronephrosis with renal and ureteral calculous obstruction (principal); Z87.442 Personal history of urinary calculi; N17.9 Acute kidney failure, unspecified; Z85.820 Personal history of malignant melanoma of skin
CPT/HCPCS: 36592; 74018; 74176; 76775; 81001; 82436; 87040; 87086; 96361; 96374; 96375; 96376; 99291; G0378; J0131; J0690; J1644; J1885; J2405